=== PATIENT | male | born 1980 | race Caucasian/White ===

== ENCOUNTER 2019-07-14 17:06 | Emergency (ER) | payer OTHER ==
[~2019-07-14] VITALS: Ht 177.8 cm; Wt 109.1 kg
[2019-07-14 17:11] VITALS: BP 146/89; TEMP 96.5
[2019-07-14 18:57] VITALS: PULSE 70
== END 2019-07-14 18:57 | disposition home or self-care (01) ==
LOC: COL.ER 17:06
DX: R13.10 Dysphagia, unspecified (principal); Z98.890 Other specified postprocedural states
CPT/HCPCS: J1610; J2405

== ENCOUNTER → 2020-12-10 | Outpatient (CLI) | payer BC ==
[~2020-12-10] VITALS: Ht 177.8 cm; Wt 115.3 kg
[2020-12-10 07:59] VITALS: BP 118/72; PULSE 99; TEMP 98.7
[2020-12-10 10:00] VITALS: BP 144/85; PULSE 94
[2020-12-10 10:47] LABS: PERITONEAL -POLYMORPHONUCLEAR 8.5 % (0-25)
== END ==
LOC: COL.RAD 07:29
PROVIDERS: Physician Assistant
DX: K80.20 Calculus of gallbladder without cholecystitis without obstruction (principal); R16.1 Splenomegaly, not elsewhere classified
CPT/HCPCS: Q9967

== ENCOUNTER 2021-05-28 09:15 | Day surgery (SDC) | payer BC ==
[~2021-05-28] VITALS: Ht 177.8 cm; Wt 97.3 kg
[2021-05-28 10:13] VITALS: BP 97/38; PULSE 78; TEMP 98.2
[2021-05-28] MEDS ORDERED: ALDACTONE 100M100 MG PO (10:15)
[2021-05-28] MEDS ORDERED: K-DUR20 MEQ PO (10:15)
[2021-05-28] MEDS ORDERED: LASIX 40MG TABL40 MG PO (10:16)
[2021-05-28] MEDS ORDERED: BENADRYL25 M2 PO (10:17)
[2021-05-28 12:15] VITALS: BP 105/52; PULSE 82; TEMP 98.1
[2021-05-28 12:30] VITALS: BP 106/50; PULSE 84
--- NOTE | 2021-05-28 13:25 | NUR ---
1215 Pt returns from endo procedure via cart and RN assist to [facility]. Pt ambulates from cart to recliner with RN assist. Monitors on and alarms set. Call light within reach. Report received from ROSE Elise. Pt alert and oriented. Pt requests juice and muffin. Pt denies any pain or nausea. 1230 Pt taking food and drink well. No complications noted. 1310 Discharge instructions given to pt. All questions answered to his satisfaction. Handed to pt are a thank you card and discharge information. Pt waiting here until arrives. 1325 Pt transferred out of the hospital via wheelchair and Jeannie assist, to private vehicle driven by pt's .
== END 2021-05-28 13:25 | disposition home or self-care (01) ==
LOC: SDCO 09:15
DX: K70.31 Alcoholic cirrhosis of liver with ascites (principal); R94.5 Abnormal results of liver function studies; E87.1 Hypo-osmolality and hyponatremia; E87.6 Hypokalemia; D69.6 Thrombocytopenia, unspecified; R60.0 Localized edema; D63.8 Anemia in other chronic diseases classified elsewhere; R74.8 Abnormal levels of other serum enzymes; Z79.899 Other long term (current) drug therapy
CPT/HCPCS: J2704; J7030

== ENCOUNTER 2021-06-01 20:55 | Inpatient (IN) | payer BC ==
[~2021-06-01] VITALS: Ht 177.8 cm; Wt 100.4 kg
[~2021-06-01 20:55] MED LIST: ALDACTONE 100M100 MG PO; BENADRYL25 M2 PO; K-DUR20 MEQ PO; LASIX 40MG TABL40 MG PO
[2021-06-01 21:36] LABS: COLLECTION METHOD CLEAN CATCH
[2021-06-01 21:45] LABS: HEMATOCRIT 21.1 % (42.0-52.0); HEMOGLOBIN 7.6 g/dl (13.5-18.0); MEAN CELL VOLUME 109 fl (80.0-100.0); MEAN CORPUSCULAR HEMOGLOBIN 39 pg (27-31); MEAN CORPUSCULAR HGB CONC 36 g/dl (33.0-37.0); MEAN PLATELET VOLUME 9.3 fl (7.4-10.4); PLATELET COUNT 81 K/mm3 (130-400); RED BLOOD COUNT 1.94 M/mm3 (4.20-5.60); REDCELL DISTRIBUTION WIDTH-CV 14.3 % (11.5-14.5)
[2021-06-01 21:46] LABS: AMORPHOUS CRYSTAL Present (NOT PRESENT); PH 7 (5-8); SQUAMOUS EPITHELIAL None Seen /hpf (0-10); URINE APPEARANCE Cloudy (CLEAR/HAZY); URINE BACTERIA None Seen /hpf (NONE SEEN); URINE BILIRUBIN Positive (NEGATIVE); URINE BLOOD 1+ (NEGATIVE); URINE COLOR Amber (YELLOW); URINE GLUCOSE Negative (NEGATIVE); URINE KETONE Negative (NEGATIVE); URINE LEUKOCYTE ESTERASE Negative (NEGATIVE); URINE NITRATE Negative (NEGATIVE); URINE PROTEIN(semi-quant) Negative (NEGATIVE); URINE UROBILINOGEN >=4.0 (NEGATIVE)
[2021-06-01 21:51] LABS: INR 3.5 (0.8-3.0)
[2021-06-01 21:58] LABS: CALCIUM 7.3 mg/dL (8.4-10.2); CREATININE, serum 0.64 mg/dL (0.72-1.25); POTASSIUM 3.9 mmol/L (3.5-4.5); TOTAL PROTEIN 4.7 gm/dL (6.2-8.1)
[2021-06-01 22:05] LABS: BAND 16 % (0-10); BURR CELLS 1+; LYMPHOCYTE 18 % (20.0-51.0); NEUTROPHILS 61 % (42.0-75.2); PLATELET ESTIMATE DECREASED (NORMAL); SPHEROCYTE 1+
[2021-06-01] MEDS ORDERED: PROAMATINE10 MG PO (22:18)
[2021-06-01 22:32] LABS: BILIRUBIN,TOTAL 17.9 mg/dL (0.2-1.2)
[2021-06-02] VITALS (11 sets, daily range): BP systolic 92–112; BP diastolic 33–71; PULSE 74–114; TEMP 97.3–98.7
[2021-06-02] MEDS ORDERED: ALDACTONE 100M100 MG PO (00:44)
--- NOTE | 2021-06-02 05:42 | NUR ---
Patient arrived to medical floor from ER around 0050. Alert and oriented x 4, and able to make needs known. Denies pain and discomfort. Peripheral INT to left AC. Given IV Lasix per orders. Denies SOB and dyspnea. LS CTA. HRR. Telemetry in place. BSAx4. 3+ edema BLE. Patient has been using urinal for accurate output. Voices no questions, needs, or concerns at this time. In bed with call light within reach.
[2021-06-02 06:57] LABS: MEAN CELL VOLUME 111 fl (80.0-100.0); MEAN CORPUSCULAR HGB CONC 36 g/dl (33.0-37.0); MEAN PLATELET VOLUME 9.3 fl (7.4-10.4); PLATELET COUNT 61 K/mm3 (130-400); RED BLOOD COUNT 1.74 M/mm3 (4.20-5.60); REDCELL DISTRIBUTION WIDTH-CV 14.2 % (11.5-14.5)
[2021-06-02 06:58] LABS: HEMATOCRIT 19.3 % (42.0-52.0); MEAN CORPUSCULAR HEMOGLOBIN 40 pg (27-31)
[2021-06-02 07:00] LABS: HEMOGLOBIN 6.9 g/dl (13.5-18.0)
[2021-06-02 07:08] LABS: INR 3.4 (0.8-3.0)
[2021-06-02 07:09] LABS: ALBUMIN 1.8 gm/dL (3.5-5.0); BILIRUBIN,TOTAL 15.7 mg/dL (0.2-1.2); CALCIUM 7.1 mg/dL (8.4-10.2); CREATININE, serum 0.62 mg/dL (0.72-1.25); MAGNESIUM 1.8 mg/dL (1.6-2.6); POTASSIUM 3.4 mmol/L (3.5-4.5); TOTAL PROTEIN 4.1 gm/dL (6.2-8.1)
[2021-06-02 07:43] LABS: BAND 16 % (0-10); BASOPHIL 3 % (0-2); EOSINOPHIL 3 % (0-4); LYMPHOCYTE 16 % (20.0-51.0); NEUTROPHILS 58 % (42.0-75.2); PLATELET ESTIMATE DECREASED (NORMAL)
[2021-06-02 07:45] LABS: BURR CELLS 1+
--- NOTE | 2021-06-02 09:37 | NUR ---
Initial visit; Patient thanked Chaperone for looking in on him and offering prayer and help for him if he so chooses. Chaperone will follow up tomorrow.
--- NOTE | 2021-06-02 09:44 | NUR ---
Social Work student met with patient to discuss discharge planning. Patient lives in [place] with his , Cristy(ph#[phone]) and two kids under the age of 18[address] Praneeth Chiu for primary care, and he receives his medications from [facility] with no cost difficulty. Patient states that he does not use any durable medical equiptment at home. Patient states that he is independent with his ADL's. Patient does not have a DPOA-HC, so this SW student asked if he was interested in completing one at this time. Patient asked if his would be the legal next of kin and SW confirmed. Therefore, patient stated he would not be interested in completing one since he would name her. Next of kin: Cristy, his . *Discharge plan: Home*
--- NOTE | 2021-06-02 11:37 | NUR ---
Phone call made to the patients Cristy to inform her of poc and that we were going to try and transfer the patient to [place]. Cristy states that she was about to walk into a meeting but will head to the hospital after.
[2021-06-02 14:33] LABS: HEMATOCRIT 25.6 % (42.0-52.0); HEMOGLOBIN 9.1 g/dl (13.5-18.0)
--- NOTE | 2021-06-02 17:00 | NUR ---
VERBAL ORDER RECIEVED OVER THE PHONE FOR PRN HYDROXIZINE 25MG TAB BY MOUTH NEEDED FOR SLEEPLESSNESS. MAY INCREASE DOSE TO A TOTAL OF 50MG IF NEEDED. VERBAL ORDER REPEAT.
== END 2021-06-02 18:23 | disposition short-term general hospital (02) | DRG 433 ==
LOC: COL.ER 20:55 → MEDICAL 23:06
PROVIDERS: Personal Emergency Response Attendant; Physician Assistant; Student in an Organized Health Care Education/Training Program; ADMIT Internal Medicine
DX: K70.31 Alcoholic cirrhosis of liver with ascites (principal); E87.1 Hypo-osmolality and hyponatremia; D68.9 Coagulation defect, unspecified; K70.11 Alcoholic hepatitis with ascites; D53.9 Nutritional anemia, unspecified; G47.00 Insomnia, unspecified; D69.6 Thrombocytopenia, unspecified
CPT/HCPCS: OP; 99239; G0378; J0696; J1940; J2060; J3430; J3475; P9016; P9047